=== PATIENT | male | born 1960 | race Caucasian/White ===

== ENCOUNTER 2018-12-01 00:31 | Emergency (ER) | payer OTHER ==
[~2018-12-01] VITALS: Ht 172.7 cm; Wt 104.3 kg
[2018-12-01 00:59] VITALS: BP_SYST 96
[2018-12-01 01:08] VITALS: BP_SYST 101
== END 2018-12-01 01:08 ==
LOC: SED 00:31
DX: Z04.1 Encounter for examination and observation following transport accident (principal); V57.6XXA Passenger in pick-up truck or van injured in collision with fixed or stationary object in traffic accident, initial encounter; Y93.89 Activity, other specified; Y92.410 Unspecified street and highway as the place of occurrence of the external cause; Y99.8 Other external cause status
CPT/HCPCS: 99283